=== PATIENT | male | born 1935 | race Caucasian/White ===

== ENCOUNTER 2019-09-16 16:36 | Inpatient (IN) | payer MEDICARE, OTHER, SELFPAY ==
[2019-09-06 09:44] VITALS: BP 157/67; PULSE 68; RESP 18; TEMP 36.9; O2SAT 100; BMI 23.8
[2019-09-16] VITALS (11 sets, daily range): BP systolic 117–158; BP diastolic 57–94; PULSE 65–90; RESP 10–19; TEMP 36.3–36.8; O2SAT 99–100; BMI 23.9; BMI 30.2
--- NOTE | ~2019-09-16 | XR_ITS ---
EXAMINATION: XR hip LT min 2V, XR surgery orthopedic DATE: 09/16/2019 15:58 (accession [id number]), 09/16/2019 15:38 (accession [id number]) INDICATION: Left total hip arthroplasty TECHNIQUE: 2 fluoroscopic intraoperative views of the left hip and 2 views left hip postoperatively. 15 seconds of fluoroscopy. FINDINGS: There is a left total hip arthroplasty in expected position. Subcutaneous gas with soft ti ssue swelling are consistent with recent surgery. IMPRESSION: 1. Recent left total hip arthroplasty. Reviewed, dictated and finalized at location A. R VEHICLE COMPLIANCE ANALYST IMPRESSION: 1. Recent left total hip arthroplasty.
--- NOTE | 2019-09-16 10:33 | WPDANESEPPF ---
Anes - Initial Pre Proc Eval Procedure: Operation Date: 09/16/19 12:00 Proposed Procedures p Left Total Hip Arthroplasty, Anterior Approach - Gallo Chu MD Date/Time: 09/16/19 10:33 Surgeon: Gallo Chu MD Pre Op Diagnosis: OA Left Hip Patient Data Age: 84 Gender: M Height: 1.66 m Weight: 66 kg Last Vital Signs Temp 36.9 C 09/06/19 09:44 Pulse 68 09/06/19 09:44 Resp 18 09/06/19 09:44 BP 157/67 H 09/06/19 09:44 Pulse Ox 100 09/06/19 09:44 Allergies Allergy/AdvReac Type Severity Reaction Status Date / Time SHELL FISH Allergy Severe Hives/THROAT Uncoded 09/06/19 09:07 SWELLING Home Medications Medication Instructions Recorded Confirmed Type buspirone 10 mg tablet 10 mg PO BID 08/29/19 09/06/19 History lansoprazole 30 mg capsule,delayed 30 mg PO DAILY 08/29/19 09/06/19 History release prednisolone acetate 0.12 % eye 1 drop LEFTEYE Q12H 08/29/19 09/06/19 History drops,suspension rosuvastatin 5 mg tablet 5 mg PO QMWF 08/29/19 09/06/19 History acetaminophen 500 mg PO PRN PRN 09/06/19 09/06/19 History coQ10 (ubiquinol) 100 mg PO DAILY 09/06/19 09/06/19 History cyanocobalamin (vitamin B-12) 1,000 mcg PO DAILY 09/06/19 09/06/19 History magnesium 400 mg PO DAILY 09/06/19 09/06/19 History naproxen sodium [Aleve] 220 mg PO PRN PRN 09/06/19 09/06/19 History sodium chloride [Yesica 128] 1 applic OPHTHALMIC (EYE) HS 09/06/19 09/06/19 History ECG: Date of Service: 09/06/19 Procedure(s): CA 12 lead EKG Accession Number(s): [id number] cc: ~ Measurements Intervals Taylor Rate: 70 P: 45 IL: 158 QRS: 43 QRSD: 86 T: 56 QT: 409 QTc: 444 Interpretive Statements SINUS RHYTHM ATRIAL PREMATURE COMPLEX EARLY PRECORDIAL R/S TRANSITION BASELINE ARTIFACT- I, II, III, AVR, AVL, AVF, V1-V6 BORDERLINE ECG Electronically Signed On 09-06-2019 10:58:29 CANDLE WRAPPING MACHINE OPERATOR by Abe Mendoza D.O. Dictated By: Abe Mendoza DO 09/06/19 1019 Patient hx anesthesia problems: none Family hx anesthesia problems: none PMFSH Past Medical History Medical History (Updated 09/16/19 @ 10:44 by Matthew Ojeda MD) Arthritis Cornea transplant recipient (~10/09/18) Gastroesophageal reflux disease Hypercholesterolemia Skin cancer Surgical History Surgical History History of eye surgery (~10/09/18) Social History Social History Smoking status: Former smoker Additional smoking assessment comments: Smoked for 30 years Alcohol intake: current Additional living arrangements comments: Gender identity (if verbalized by the patient): Male Anes - Eval Final PreProcedure Day of Procedure 09/16/19 10:33 Patient weight: normal Heart: regular rate and rhythm Lungs: clear to auscultation and normal air movement Airway: Mallampati scale class II Neurological: alert and oriented Last oral intake: >/= 8 hours ASA classification: II Emergent: no Anesthetic plan: proceed Anesthesia type and monitoring: general Informed Consent: The patient's anesthetic plan and its attendant risks and benefits were discussed with the patient/family/POA. Questions were solicited and answers provided to the satisfaction of the patient/family/POA.
[2019-09-16] MEDS: LACTATED RINGERS 1,000 ML 30 ML IV CONT ×2 (11:45→15:41)
--- NOTE | 2019-09-16 12:06 | WPDHPUPDATE1 ---
History and Physical Update Update Date/Time: 09/16/19 12:06 History and Physical has been reviewed, including an updated exam of the patient. There are NO changes in the patient's condition. Risks, benefits, and alternatives have been discussed and questions answered. Patient agrees to proceed with procedure.
[2019-09-16] MEDS: ceFAZolin 2 GM/D5W 50 ML 2 GM/50 ML BAG IVPB (12:34)
[2019-09-16] MEDS: TRANEXAMIC ACID 1,000 MG/10 ML AMPUL 1000 MG TOPICAL (12:52)
[2019-09-16] MEDS: ceFAZolin SODIUM 1 GM VIAL IV PUSH (15:08)
--- NOTE | 2019-09-16 15:56 | P.OP_ITS ---
Procedure Note - Detailed Date of procedure: 09/16/19 Pre-op diagnosis: OA Left Hip Post-op diagnosis: same Procedure performed: Left total hip replacement done through an anterior approach. Description of procedure: The patient was identified, proper side identified, and then taken to the operating room. After a spinal anesthetic was administered, he was then transferred over to the [place] table positioning supine in the usual manner for an anterior hip procedure. Positioning was assessed fluoroscopically after which the left hip and thigh was prepped and draped in the usual sterile fashion. 10 cc of the arthroplasty solution was injected into the subcutaneous tissue over the TFL muscle belly. Longitudinal incision was made over the muscle belly. Subcutaneous tissue was sharply dissected down to the TFL fascia which was incised in line with the fibers the TFL. The TFL was retracted laterally and the rectus femoris medially. The rectus fascia was divided. The branches of the anterior femoral circumflex artery were identified and cauterized allowing for access to the hip capsule. Pericapsular fatty tissue was removed. The capsule was divided in an inverted T-fashion. The neck cut was made one fingerbreadth above the level of the lesser trochanter. Head fragment was removed and the acetabulum cleared of debris. Acetabulum was sequentially reamed under fluoroscopic visualization up to 53 mm. A 54 mm G7 cup was inserted under fluoroscopic visualization in approximately 40? of abduction and 15? of anteversion following the patient's anatomy. It was further secured with a single screw and then the liner for the 36 head was placed. The femur was then delivered up into the wound with the appropriate releases. The proximal femur was prepared for the size 13 echo micro-plasty offset stem and a trial reduction was undertaken. Overall alignment was assessed fluoroscopically in the AP and lateral views noting it to be satisfactory. Trial components were removed. The wound was irrigated with pulsatile lavage. The real 13 high offset micro plasty stem was then seated. This construct with a minus three, 36 head gave excellent rastafarian of leg lengths and stability so the real 36, minus-three ceramic head was attached to the neck of the femoral component after it had been cleaned and dried. Hip was again reduced and stability assessed, and it was noted to be stable. After final lavage of the wound, the periarticular tissues were injected with an additional 50 cc of the arthroplasty solution. 1 g of tranexamic acid was left in the wound. The capsule was reapproximated with #2 Vicryl suture, the TFL fascia with 0 looped PDS suture, the subcu with two of strata fix in the deeper layers and two of strata fix subcuticular stitch. Tissue adhesive was used for the skin. Sterile dressing was applied. He tolerated the procedure well. He was transferred back to a bed and taken to recovery area in stable condition. There were no known intraoperative complications. Estimated blood loss was 200 cc. He received perioperative antibiotics. Anesthesia: spinal Surgeon: Gallo Chu MD Photography Spotter: Luis Felipe Gardiner Estimated blood loss (mL): 200 Drains: No Packing: No Pathology: none sent Complications: No immediate complications Condition: stable Disposition: PACU
[2019-09-16 17:09] LABS: Hematocrit 36.6 % (42.0-52.0)
[2019-09-16] MEDS: DOCUSATE SODIUM 100 MG CAPSULE PO (17:57)
[2019-09-16] MEDS: KETOROLAC 15 MG/ML VIAL (*BKC) IV PUSH (17:57)
--- NOTE | 2019-09-16 18:15 | ADMGEN ---
This patient, Malcolm Banegas, was admitted to 3 [facility] Surg Room 312-01 at 1640.Patient/family oriented to hospital policies and general routines including ID bracelet, bed and alarms, visiting hours, pain management, procedures, bathroom and other care routines, personal items, smoking policy, room service/diet, and visiting hours. Valuables list has been completed. Information on how to activate the Rapid Response Team has been discussed. Patient/Family are encouraged to report perceived risks to care and to ask questions if they do not understand what they are told or what they should do.
[2019-09-16] MEDS: busPIRone HCL 10 MG TABLET PO (19:02)
[2019-09-16] MEDS: ROSUVASTATIN 5 MG TABLET PO (19:03)
[2019-09-16] MEDS: FAMOTIDINE 20 MG TABLET PO (20:38)
[2019-09-17] MEDS: KETOROLAC 15 MG/ML VIAL (*BKC) IV PUSH ×2 (00:03→06:10)
[2019-09-17 02:00] VITALS: BP 128/56; PULSE 83; RESP 16; TEMP 36.8; O2SAT 99
[2019-09-17] MEDS: ONDANSETRON INJ 4 MG/2 ML VIAL IV PUSH ×2 (04:52→12:17)
[2019-09-17 06:00] VITALS: BP 142/67; PULSE 74; RESP 20; TEMP 36.6; O2SAT 100
[2019-09-17] MEDS: busPIRone HCL 10 MG TABLET PO (08:32)
[2019-09-17] MEDS: DOCUSATE SODIUM 100 MG CAPSULE PO (08:33)
[2019-09-17] MEDS: PANTOPRAZOLE 40 MG TABLET PO (08:34)
[2019-09-17] MEDS: FAMOTIDINE 20 MG TABLET PO (08:34)
--- NOTE | 2019-09-17 09:39 | WPDANESPN ---
Anes - Prog Note Post-Op Date/Time: 09/17/19 09:39 Cardiovascular status: normal Respiratory status: normal Airway patency: baseline Mental status: baseline Post-Op hydration status: normal Vital Signs: Last Vital Signs Temp 36.6 C 09/17/19 06:00 Pulse 74 09/17/19 06:00 Resp 20 09/17/19 06:00 BP 142/67 H 09/17/19 06:00 Pulse Ox 100 09/17/19 06:00 I/O: Intake & Output 09/16/19 09/17/19 09/17/19 23:59 07:59 15:59 Intake Total 720 250 650 Output Total 0 1400 Balance 720 -1150 650 Laboratory Tests 09/16/19 16:55 09/16/19 09/16/19 16:55 16:55 Hgb 12.0 L Hct 36.6 L Blood Type O Positive Antibody Screen Negative Post-procedural complaints: none Patient Feedback: Patient satisfied with anesthetic care.
[2019-09-17 10:00] VITALS: BP 138/65; PULSE 88; RESP 19; TEMP 36.7; O2SAT 100
[2019-09-17] MEDS: MAG HYDROX/AL HYDROX/SIMETH 30 ML UDC PO (12:17)
[2019-09-17] MEDS: RIVAROXABAN 10 MG TABLET PO (12:18)
--- NOTE | 2019-09-17 12:25 | PM.PNORT ---
Progress Note: A&P Assessment and Plan (1) Osteoarthritis of left hip: Qualifiers: Osteoarthritis type: primary Qualified Code(s): M16.12 - Unilateral primary osteoarthritis, left hip Code(s): M16.12 - Unilateral primary osteoarthritis, left hip Status: Acute Assessment and Plan: Discharge home today. Instructions were reviewed. He is to follow up with me in two weeks. Time Spent With Patient Time with patient: 15 - 25 minutes Subjective Subjective Date/Time Seen: 09/17/19 12:25 Post Op day: 1 (Status post left total hip replacement) Review of Systems Constitutional: Constitutional: Denies chills and Denies fever(s) Eyes: Eyes: Reports no additional eye complaints ENT: Reports system reviewed and no additional complaints, except as documented Cardiovascular: Cardiovascular: Denies chest pain and Denies dyspnea on exertion Respiratory: Respiratory: Reports no additional respiratory complaints and Denies dyspnea on exertion Gastrointestinal: Gastrointestinal: Denies abdominal pain, Denies bloating and Reports nausea (With the pain medicine) Exam Const: General: cooperative, no acute distress and alert Nutritional Appearance: other Orientation/consciousness: patient oriented x3 Limitations: no limitations HENMT: Head: normal to inspection Ears: hearing grossly normal bilaterally Face and sinus: face symmetric Mouth: Yes moist mucous membranes Teeth and gingiva: fair dentition Eyes: Alignment and Position: alignment normal and position normal Sclera: sclerae normal Neck: Neck: normal visual inspection and nontender Chest: Chest palpation & inspection: normal inspection of the chest Resp: Effort & Inspection: normal respiratory effort and able to speak in complete sentences GI: Inspection: other Skin: General skin exam: normal color Rashes: no rashes Neuro: General: patient oriented x3 Cognition (Neuro): normal cognition Speech: normal speech Gait exam (Neuro): Other gait observations present Motor exam (neuro): 5/5 motor strength present throughout Sensory Exam: normal sensation Extrem: General: normal to inspection and other Other: Exam of the left hip shows a nicely opposed wound. No erythema only minimal swelling. No Drainage. Neurovascular status to the left lower extremity intact. Calves negative. Psych: Appearance: grossly normal Mental Status: mental status grossly normal Objective Data Vital Signs Vital Signs: Vital Signs - 24 hr 09/16/19 15:41 09/16/19 15:45 09/16/19 16:00 Temperature 97.5 F L Pulse Rate 75 65 68 Respiratory Rate 10 L 11 L 13 Blood Pressure 117/57 L 124/66 124/66 Pulse Oximetry 100 100 100 09/16/19 16:15 09/16/19 16:30 09/16/19 16:40 Temperature Pulse Rate 66 71 76 Respiratory Rate 10 L 12 18 Blood Pressure 124/67 125/63 131/94 H Pulse Oximetry 100 100 99 09/16/19 16:55 09/16/19 17:25 09/16/19 18:25 Temperature 98.3 F Pulse Rate 74 72 90 Respiratory Rate 16 18 19 Blood Pressure 136/67 144/64 H 152/63 H Pulse Oximetry 100 100 100 09/16/19 22:45 09/17/19 02:00 09/17/19 06:00 Temperature 97.7 F 98.2 F 98 F Pulse Rate 75 83 74 Respiratory Rate 16 16 20 Blood Pressure 158/68 H 128/56 L 142/67 H Pulse Oximetry 100 99 100 09/17/19 10:00 Temperature 98.1 F Pulse Rate 88 Respiratory Rate 19 Blood Pressure 138/65 Pulse Oximetry 100 Intake/Output Intake/Output: Intake & Output 09/14/19 09/15/19 09/16/19 09/17/19 23:59 23:59 23:59 23:59 Intake Total 870 / 870 900 / 900 Output Total 0 / -250.0 1400 / 1400 Balance 870 / 1120.0 -500 / -500 Meds/Results Medications: Active Medications Generic Name Dose Route Start Last Admin Trade Name Freq PRN Reason Stop Dose Admin Al Hydrox/Mg Hydrox/Simethicone 30 ml 09/16/19 16:36 09/17/19 12:17 Mylanta PO 30 ml Q6H PRN Administration Indigestion Buspirone HCl 10 mg 09/16/19 17:00 09/17/19 08:32 Buspar PO 10 mg B
--- NOTE | 2019-09-17 12:36 | PM.DS ---
DS: Diagnosis Admitting Diagnosis Admitting Diagnosis: Unilateral primary osteoarthritis, left hip DS: Summary Time Spent with Patient Time attestation: Total time spent providing and/or coordinating discharge services: DS: Data Data Completed and Pending Labs on day of discharge: Labs from last 24 hours 09/16/19 09/16/19 16:55 16:55 Hgb 12.0 L Hct 36.6 L Blood Type O Positive Antibody Screen Negative Discharge Plan Discharge Attending physician on discharge: Gallo Chu Discharging Clinician: Gallo Chu Patient Disposition: Home, Self-Care Activity: may shower Diet: regular Wound Care Instructions: incision open to air Discharge Instructions: Call [phone] and ask for [place] with any questions prior to follow-up. Please replace the dressing on 09/13/2019 with the one provided by the hospital. Okay to shower. 3 times daily for 20 minutes apiece, lay in bed with pillow underneath the left calf and ice bags on the hip. Be careful not to freeze the skin. For the 1st 2-3 days after your surgery, take the prescribed pain medication on a schedule. After switching to the scheduled arthritis formula Tylenol, you may take up to four of the pain pills per day in addition to the scheduled Tylenol. Can switched to the scheduled Tylenol in three or four days, rather than five. Do your physical therapy exercises once or twice daily for the 1st week. Your formal therapy begins in one week. The day after the Xarelto is completed, begin taking enteric coated aspirin 81 mg daily and do this for a total of 28 more days. Patient Instructions: Antibiotic Form Stand Alone Forms: General Discharge Information Follow-up/Referrals: Gallo Chu MD [Physician] - Discharge Medications: New hydrocodone-acetaminophen 7.5-325 mg tablet 1 tablet PO Q4H PRN (Reason: pain) Qty: 40 RF: 0 Xarelto 10 mg Tablet 10 mg PO DAILY@1700 Qty: 13 RF: 0 ondansetron HCl [Zofran] 4 mg tablet 4 mg PO Q8H PRN (Reason: nausea and vomiting) Qty: 15 RF: 1 Continued buspirone 10 mg tablet 10 mg PO BID RF: 0 rosuvastatin 5 mg tablet 5 mg PO QMWF RF: 0 lansoprazole 30 mg capsule,delayed release(DR/EC) 30 mg PO DAILY RF: 0 prednisolone acetate 0.12 % drops,suspension 1 drop LEFTEYE Q12H RF: 0 sodium chloride [Yesica 128] 5 % Ointment 1 applic ophthalmic (eye) HS RF: 0 cyanocobalamin (vitamin B-12) 1,000 mcg Tablet 1,000 mcg PO DAILY RF: 0 magnesium 200 mg Tablet 400 mg PO DAILY RF: 0 coQ10 (ubiquinol) 100 mg Capsule 100 mg PO DAILY RF: 0 Discontinued acetaminophen 500 mg Tablet 500 mg PO PRN PRN (Reason: Pain) RF: 0 Date of admission: 09/16/19 16:36 Primary Care Provider: ErnestoAlex Admitting Provider: Gallo Chu Attending physician on admission: Gallo Chu Quality VTE Prophylaxis VTE prophylaxis: mechanical ordered and pharmacologic ordered
== END 2019-09-17 14:15 | disposition home or self-care (01) | DRG 470 ==
LOC: ANH3MEDSUR 16:41
PROVIDERS: Admitting Provider Orthopaedic Surgery; PCP Internal Medicine; Visit Provider Orthopaedic Surgery
PROC: 0SRB01A Replacement of Left Hip Joint with Metal Synthetic Substitute, Uncemented, Open Approach (ICD-10-PCS; CPT 27130; principal; 2019-09-16 12:00)
DX: M16.12 Unilateral primary osteoarthritis, left hip (principal); M19.90 Unspecified osteoarthritis, unspecified site; K21.9 Gastro-esophageal reflux disease without esophagitis; E78.00 Pure hypercholesterolemia, unspecified; Z85.828 Personal history of other malignant neoplasm of skin; Z87.891 Personal history of nicotine dependence
CPT/HCPCS: 36415; 73502; 76000; 85014; 85018; 86850; 86900; 86901; 97116; 97161; 97165; 97530; 97535; A9270; C1776; J0131; J0171; J0690; J1170; J1885; J2250; J2270; J2405; J2704; J2795; J3010; J7120

== ENCOUNTER → 2022-02-24 07:39 | Outpatient (CLI) | payer MEDICARE, OTHER, SELFPAY ==
--- NOTE | ~2022-02-24 | MR_ITS ---
EXAMINATION: MR lumbar spine wo con DATE: 02/24/2022 08:16 INDICATION: Lumbago and left-sided sciatica TECHNIQUE: Magnetic resonance imaging (MRI) of the lumbar spine was performed without intravenous con trast. Sequences included sagittal T2-weighted FSE, sagittal T2-weighted FS FSE, sagittal T1-weighted FSE, and axial T2-weighted FSE. COMPARISON: None FINDINGS: 30 degree lumbar levoscoliosis and 20 degrees lower thoracic dextroscoliosis. 2 mm retrolisthesis T11 and T12, 3 mm retrolisthesis T12 on L1, 4 mm anterolisthesis L4 on L5. Severe right-sided predominan t disc height loss at L4 and L4-L5, severe left-sided predominant disc height loss at T12-L1, L1-L2 a nd L5-S1 and moderate disc height loss at T10-T11, T11-T12 and with right-sided predominance at L2-L3 . Prominent fibrovascular degenerative endplate changes associated with the regions of severe disc he ight loss. Annular fissures at T11-T12 through L5-S1. Oral signal is otherwise normal. The conus medu llaris terminates at L1-L2. There is normal signal in the caudal spinal cord. 2.2 cm T2 hyperintense right renal cyst. Paravertebral soft tissues are unremarkable. The following disc levels are specific ally discussed: T10-T11: Disc is bulging. There is mild right and severe left facet joint osteoarthritis. There is mo derate left and moderate to severe right neural foraminal stenosis. There is mild central canal steno sis. T11-T12: Disc is bulging. There is moderate left and mild right facet joint osteoarthritis. There is moderate right and severe left neural foraminal stenosis. There is mild central canal stenosis. T12-L1: Disc is bulging. There is moderate right and moderate to severe left facet joint osteoarthrit is. There is mild to moderate right and severe left neural foraminal stenosis. There is mild central canal stenosis. L1-L2: Disc is bulging. There is hypertrophy of the ligamentum flavum. There is severe bilateral fac et joint osteoarthritis. There is moderate right and moderate to severe left neural foraminal stenosi s. There is moderate to severe central canal stenosis with narrowing of the lateral recesses, right g reater than left. L2-L3: Disc is bulging. There is hypertrophy of the ligamentum flavum. There is left and moderate to severe right facet joint osteoarthritis. There is moderate left and moderate to severe right neural foraminal stenosis. There is mild central canal stenosis with narrowing of the lateral recesses. L3-L4: Disc is bulging. There is hypertrophy of the ligamentum flavum. There is moderate left and s evere right facet joint osteoarthritis. There is moderate left and moderate to severe right neural fo raminal stenosis. There is mild central canal stenosis with narrowing of the left and right lateral r ecesses, right greater than left. L4-L5: Disc is bulging. There is hypertrophy of the ligamentum flavum. There is severe bilateral face t joint osteoarthritis. There is moderate left and moderate to severe right neural foraminal stenosis . There is mild to moderate central canal stenosis with narrowing of the lateral recesses, right grea ter than left. L5-S1: Disc is bulging. There is moderate to severe right and severe left facet joint osteoarthritis. There is moderate bilateral, left greater than right neural foraminal stenosis. There is mild centra l canal stenosis. IMPRESSION: 1. 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 Reviewed, dictated and finalized at location A. IMPRESSION: 1. 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
== END ==
PROVIDERS: PCP Internal Medicine; Visit Provider Nurse Practitioner
DX: M54.42 Lumbago with sciatica, left side (principal); M47.895 Other spondylosis, thoracolumbar region; M47.894 Other spondylosis, thoracic region
CPT/HCPCS: 72148

== ENCOUNTER 2022-04-27 07:07 | Day surgery (SDC) | payer MEDICARE, OTHER, SELFPAY ==
[2022-04-12 09:31] VITALS: BMI 24.5
[2022-04-27] MEDS: TETRACAINE HCL 0.5% OPHTH SOLN 4 ML BTL 1 DROP AFFCTD EYE ×3 (08:12→08:22)
[2022-04-27] MEDS: OFLOXACIN 0.3% OPHTH SOLN 5 ML BTL 1 DROP AFFCTD EYE (08:12)
[2022-04-27] MEDS: PILOCARPINE HCL 2% OP SOLN 15 ML BTL 1 DROP AFFCTD EYE ×3 (08:12→08:22)
[2022-04-27 08:16] VITALS: BP 159/77; PULSE 76; RESP 18; TEMP 37.1; O2SAT 100
--- NOTE | 2022-04-27 08:30 | WPDANESEPPF ---
Anes - Initial Pre Proc Eval Procedure: Operation Date: 04/27/22 09:00 Proposed Procedures p Descemet Membrane Endothelial Keratoplasy-Right Eye - Elian Garibay MD Date/Time: 04/27/22 08:30 Surgeon: Elian Garibay MD Pre Op Diagnosis: Mechanical Complication of Tissue Graft Right Eye Patient Data Age: 87 Gender: M Height: 1.68 m Weight: 68.5 kg Last Vital Signs Temp 37.1 C 04/27/22 08:16 Pulse 76 04/27/22 08:16 Resp 18 04/27/22 08:16 BP 159/77 H 04/27/22 08:16 Pulse Ox 100 04/27/22 08:16 O2 Del Method Room Air 04/27/22 08:16 Allergies Allergy/AdvReac Type Severity Reaction Status Date / Time SHELL FISH Allergy Severe Hives/THROAT Uncoded 04/27/22 08:10 SWELLING Home Medications Medication Instructions Recorded Confirmed Type buspirone 10 mg tablet 10 mg PO BID 08/29/19 04/27/22 History lansoprazole 30 mg capsule,delayed 30 mg PO DAILY 08/29/19 04/27/22 History release prednisolone acetate 0.12 % eye 1 drop EACH EYE Q12H 08/29/19 04/27/22 History drops,suspension rosuvastatin 5 mg tablet 5 mg PO QMWF 08/29/19 04/27/22 History coQ10 (ubiquinol) 100 mg capsule 100 mg PO DAILY 09/06/19 04/27/22 History magnesium 200 mg tablet 400 mg PO DAILY 09/06/19 04/27/22 History sodium chloride 5 % eye ointment 1 applic EACH EYE HS 09/06/19 04/27/22 History (Yesica 128) Patient hx anesthesia problems: none Family hx anesthesia problems: none Results Review: All pre-operative results and documents have been reviewed as part of the pre-operative evaluation. [facility] Past Medical History Medical History Arthritis Cornea transplant recipient (~10/09/18) Gastroesophageal reflux disease Hypercholesterolemia Skin cancer Surgical History Surgical History History of eye surgery (~10/09/18) Status post total replacement of left hip August 2019 Family History Family History Mother Cancer Social History Social History Smoking packs per day: 1 Smoking cigarettes per day: 20.0 Years smoked: 30 Smoking pack-years: 30.00 Smoking status: Former smoker Tobacco type: cigarettes Second hand tobacco smoke exposure: No Smoking end date: 08/21/81 Additional smoking assessment comments: quit smoking 40 years ago Alcohol intake: current Drinks per week: 7 Alcohol use details: 1 glass of wine every evening Substance use: never Living arrangements: with family Additional living arrangements comments: Gender identity (if verbalized by the patient): Male Spiritual care concerns: No Anes - Eval Final PreProcedure Day of Procedure 04/27/22 08:30 Patient weight: normal Heart: regular rate and rhythm Lungs: decreased breath sounds Airway: Mallampati scale class II Neurological: alert and oriented Last oral intake: >/= 8 hours ASA classification: III Emergent: no Anesthetic plan: proceed Anesthesia type and monitoring: general GIVS and standard monitoring Results Review: All pre-operative results and documents have been reviewed as part of the pre-operative evaluation. Informed Consent: The patient's anesthetic plan and its attendant risks and benefits were discussed with the patient/family/POA. Questions were solicited and answers provided to the satisfaction of the patient/family/POA.
--- NOTE | 2022-04-27 08:47 | PM.HPGS ---
History of Present Illness History of Present Illness Consent: Risks, benefits, and alternatives have been discussed and questions answered. Patient agrees to proceed with procedure. 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 Family History Family History Mother Cancer Social History Social History Smoking packs per day: 1 Smoking cigarettes per day: 20.0 Years smoked: 30 Smoking pack-years: 30.00 Smoking status: Former smoker Tobacco type: cigarettes Second hand tobacco smoke exposure: No Smoking end date: 08/21/81 Additional smoking assessment comments: quit smoking 40 years ago Alcohol intake: current Drinks per week: 7 Alcohol use details: 1 glass of wine every evening Substance use: never Living arrangements: with family Additional living arrangements comments: Gender identity (if verbalized by the patient): Male Spiritual care concerns: No Meds Home Medications and Allergies Home Medications Medication Instructions Recorded Confirmed Type buspirone 10 mg tablet 10 mg PO BID 08/29/19 04/27/22 History lansoprazole 30 mg capsule,delayed 30 mg PO DAILY 08/29/19 04/27/22 History release prednisolone acetate 0.12 % eye 1 drop EACH EYE Q12H 08/29/19 04/27/22 History drops,suspension rosuvastatin 5 mg tablet 5 mg PO QMWF 08/29/19 04/27/22 History coQ10 (ubiquinol) 100 mg capsule 100 mg PO DAILY 09/06/19 04/27/22 History magnesium 200 mg tablet 400 mg PO DAILY 09/06/19 04/27/22 History sodium chloride 5 % eye ointment 1 applic EACH EYE HS 09/06/19 04/27/22 History (Yesica 128) Allergies Allergy/AdvReac Type Severity Reaction Status Date / Time SHELL FISH Allergy Severe Hives/THROAT Uncoded 04/27/22 08:10 SWELLING Vital Signs Vital Signs - 24 hr 04/27/22 08:16 Temperature 37.1 C Pulse Rate 76 Respiratory Rate 18 Blood Pressure 159/77 H Pulse Oximetry 100 Oxygen Delivery Room Air Exam Narrative: REVIEWED HISTORY, PATIENT IS READY FOR EYE SURGERY Assessment and Plan Assessment and plan (1) 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
--- NOTE | 2022-04-27 08:53 | SUR.OPER ---
SF6 GAS INJECTED BY DR LINDO TO RT EYE
[2022-04-27] MEDS: LIDOCAINE HCL 2% JELLY 5 ML TUBE 1 APPLIC AFFCTD EYE (08:54)
--- NOTE | 2022-04-27 09:11 | SUR.OPER ---
[facility] [place] SN#[id number] [facility] SN#[id number]
[2022-04-27] MEDS: LIDOCAINE HCL 1% PF INJ 5 ML VIAL 1 ML INTRAOCULA (09:15)
[2022-04-27] MEDS: NEOMYCIN/POLYMYXIN/DEXAMETH OP OINT 3.5 GM TUBE 1 APPLIC AFFCTD EYE (10:00)
[2022-04-27] MEDS: HOME MEDICATION 1 EACH AFFCTD EYE (10:00)
[2022-04-27 10:03] VITALS: BP 145/61; PULSE 63; RESP 14; O2SAT 100
[2022-04-27 10:18] VITALS: BP 139/64; PULSE 67; RESP 16; O2SAT 100
[2022-04-27 10:33] VITALS: BP 128/62; PULSE 64; RESP 16; O2SAT 100
[2022-04-27 10:48] VITALS: BP 139/64; PULSE 73; RESP 20; O2SAT 100
[2022-04-27] MEDS: LACTATED RINGERS 1,000 ML 30 ML IV CONT (10:56)
[2022-04-27] MEDS: acetaZOLAMIDE TAB 250 MG TABLET PO (11:05)
--- NOTE | 2022-04-27 11:07 | WPDANESPN ---
Anes - Prog Note Post-Op Date/Time: 04/27/22 11:07 Cardiovascular status: normal Respiratory status: normal Airway patency: baseline Mental status: baseline Post-Op hydration status: normal Vital Signs: Last Vital Signs Temp 37.1 C 04/27/22 08:16 Pulse 73 04/27/22 10:48 Resp 20 04/27/22 10:48 BP 139/64 04/27/22 10:48 Pulse Ox 100 04/27/22 10:48 O2 Del Method Room Air 04/27/22 10:33 Pain Score (VAS): 0 Patient Feedback: Patient satisfied with anesthetic care.
--- NOTE | 2022-04-27 11:14 | SUR.PHASEII ---
1003 pt to Phase II flat on back on stretcher. Pt to remain flat for 1 hour.
--- NOTE | 2022-04-27 11:15 | SUR.PHASEII ---
1104 pt assisted to sitting position on stretcher after remaining flat for an hour. Pt tolerated well.
--- NOTE | 2022-04-27 11:25 | WPDHPUPDATE1 ---
History and Physical Update Update Date/Time: 04/27/22 11:25 History and Physical has been reviewed, including an updated exam of the patient. There are NO changes in the patient's condition. Risks, benefits, and alternatives have been discussed and questions answered. Patient agrees to proceed with procedure.
--- NOTE | 2022-04-27 12:22 | P.OP_ITS ---
Procedure Note - Detailed Date of Procedure 04/27/22 Pre-op Diagnosis Corenal Tissue Graft Failure Right Eye Post-op Diagnosis Same Procedure Performed DMEK [OD eye Surgeon Elian Garibay MD Anesthesia Other (Monitored anesthesia care and local retrobulbar block) Description of Procedure Following discussion of the risks, benefits, and alternatives, informed consent was obtained and the surgical permission form was signed and witnessed. The operative site was marked in the holding area after consulting the patient's office chart. Monitoring devices were placed on the patient and the patient was positioned in the supine position. After an appropriate intravenous sedation, a peribulbar block was given to the operative eye using a 25 gauge 5/8 inch needle. A total of 4 cc of a mixture of 0.75% Marcaine and 2% lidocaine was given. The patient was then prepped and draped in the normal sterile ophthalmic fashion. A Cindy eyelid speculum was inserted into the operative eye. A 15-degree blade was used to make two paracenteses sites. The 8 mm optical zone marker was used to kim the surface of the cornea. Provisc was injected into the anterior chamber to deepen and firm it. A 2.4 mm keratome was used to create a triplanar clear cornea incision temporally. The previously made inferior peripheral iridotomy was examined and noted to be patent. A reverse Sinskey hook was used to score Descemet's membrane just outside the 8 mm optical zone kim. A Max's Descemet's stripper was used to remove the host Descemet's membrane. The irrigation and aspiration was used to remove any residual viscoelastic from the anterior chamber. Attention was then directed to the donor corneal button which was lightly punched endothelial side up using a 7.75mm punch. The Descemet's membrane was tripped carefully and the scroll stained with trypan blue stain. The donor Descemet's scroll was loaded into the DoubleVerify-LoiLo tube injector and slowly injected into the anterior chamber with care so as to keep the chamber shallow. A single 10-0 nylon suture was used to close the corneal wound. BSS was injected into the anterior chamber to unfold the tissue. Care was taken to ensure correct orientation with endothelium on outside of DM curl. The graft was unfolded using tapping motions and then centered using golf swing motions on the cornea. A full anterior chamber fill with 20% SF6 gas/80% filtered air was then given to float the donor lenticule. All knots were cut short and buried. At the end of the case, the gas bubble was reduced to expose the inferior angle with the patient in an upright position,. The eyelid speculum was removed and the patient's face and eye were cleaned with wet and dry gauze. Antibiotic, steroid and ointment were applied to the operative eye. The eye was patched with an eye pad and a mitchell shield. The patient was taken to the re covery room in a stable condition. The patient was left lying in supine position with nose up towards the ceiling positioning for a further 2 hours in the holding area. Sponges, needle and instrument counts: all correct at conclusion of the case. Complications None Condition Stable Disposition Same day
== END 2022-04-27 11:10 | disposition home or self-care (01) ==
PROVIDERS: PCP Internal Medicine; Visit Provider Student in an Organized Health Care Education/Training Program
PROC: (CPT 65756; principal; 2022-04-27 09:00)
DX: T86.8411 Corneal transplant failure, right eye (principal)
CPT/HCPCS: 65756; V2785

== ENCOUNTER 2022-06-22 07:17 | Day surgery (SDC) | payer MEDICARE, OTHER, SELFPAY ==
[2022-06-14 12:04] VITALS: BMI 23.4
[2022-06-22 08:00] VITALS: BP 167/86; PULSE 79; RESP 16; TEMP 36.5; O2SAT 100
--- NOTE | 2022-06-22 08:08 | WPDANESEPPF ---
Anes - Initial Pre Proc Eval Procedure: Operation Date: 06/22/22 09:00 Proposed Procedures p Descemet Membrane Endothelial Keratoplasty-Left Eye - Elian Garibay MD Date/Time: 06/22/22 08:08 Surgeon: Elian Garibay MD Pre Op Diagnosis: Corneal Transplant Failure Left Eye Patient Data Age: 87 Gender: M Height: 1.7 m Weight: 68 kg Allergies Allergy/AdvReac Type Severity Reaction Status Date / Time SHELL FISH Allergy Severe Hives/THROAT Uncoded 04/27/22 08:10 SWELLING Home Medications Medication Instructions Recorded Confirmed Type buspirone 10 mg tablet 10 mg PO BID 08/29/19 06/14/22 History lansoprazole 30 mg capsule,delayed 30 mg PO DAILY 08/29/19 06/14/22 History release prednisolone acetate 0.12 % eye 1 drop EACH EYE Q12H 08/29/19 06/14/22 History drops,suspension rosuvastatin 5 mg tablet 5 mg PO QMWF 08/29/19 06/14/22 History coQ10 (ubiquinol) 100 mg capsule 100 mg PO DAILY 09/06/19 06/14/22 History magnesium 200 mg tablet 400 mg PO DAILY 09/06/19 06/14/22 History sodium chloride 5 % eye ointment 1 applic EACH EYE HS 09/06/19 06/14/22 History (Yesica 128) Patient hx anesthesia problems: none Family hx anesthesia problems: none Results Review: All pre-operative results and documents have been reviewed as part of the pre-operative evaluation. 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 Family History Family History Mother Cancer Social History Social History Smoking packs per day: 1 Smoking cigarettes per day: 20.0 Years smoked: 30 Smoking pack-years: 30.00 Smoking status: Former smoker Tobacco type: cigarettes Second hand tobacco smoke exposure: No Smoking end date: 08/21/81 Additional smoking assessment comments: quit smoking 40 years ago Alcohol intake: current Drinks per week: 7 Alcohol use details: 1 glass of wine every evening Substance use: never Substance use type: does not use Living arrangements: with family Additional living arrangements comments: Gender identity (if verbalized by the patient): Male Spiritual care concerns: No Anes - Eval Final PreProcedure Day of Procedure 06/22/22 08:08 Patient weight: normal Heart: regular rate and rhythm Lungs: decreased breath sounds Airway: Mallampati scale class II Neurological: alert and oriented Last oral intake: >/= 8 hours ASA classification: III Emergent: no Anesthetic plan: proceed Anesthesia type and monitoring: general GIVS and standard monitoring Results Review: All pre-operative results and documents have been reviewed as part of the pre-operative evaluation. Informed Consent: The patient's anesthetic plan and its attendant risks and benefits were discussed with the patient/family/POA. Questions were solicited and answers provided to the satisfaction of the patient/family/POA.
[2022-06-22] MEDS: PILOCARPINE HCL 2% OP SOLN 15 ML BTL 1 DROP AFFCTD EYE ×3 (08:20→08:30)
[2022-06-22] MEDS: OFLOXACIN 0.3% OPHTH SOLN 5 ML BTL 1 DROP AFFCTD EYE (08:20)
[2022-06-22] MEDS: TETRACAINE HCL 0.5% OPHTH SOLN 4 ML BTL 1 DROP AFFCTD EYE ×3 (08:20→08:30)
[2022-06-22] MEDS: LACTATED RINGERS 1,000 ML 30 ML IV CONT ×2 (08:25→10:08)
--- NOTE | 2022-06-22 08:56 | WPDHPUPDATE1 ---
History and Physical Update Update Date/Time: 06/22/22 08:56 History and Physical has been reviewed, including an updated exam of the patient. There are NO changes in the patient's condition. Risks, benefits, and alternatives have been discussed and questions answered. Patient agrees to proceed with procedure.
[2022-06-22] MEDS: LIDOCAINE HCL 2% JELLY 5 ML TUBE 1 APPLIC AFFCTD EYE (09:13)
[2022-06-22] MEDS: LIDOCAINE HCL 1% PF INJ 5 ML VIAL 2 ML AFFCTD EYE (09:18)
[2022-06-22] MEDS: LIDOCAINE HCL 1% LOCAL INJ 2 ML AMPUL 1 ML INFILTRATE (09:25)
--- NOTE | 2022-06-22 09:50 | SUR.OPER ---
sf6 gas used during procedure
[2022-06-22] MEDS: NEOMYCIN/POLYMYXIN/DEXAMETH OP OINT 3.5 GM TUBE 1 APPLIC AFFCTD EYE (10:04)
[2022-06-22] MEDS: HOME MEDICATION 1 EACH AFFCTD EYE (10:04)
[2022-06-22 10:08] VITALS: BP 130/70; PULSE 66; RESP 16; O2SAT 100
--- NOTE | 2022-06-22 10:09 | SUR.OPER ---
[id number]
--- NOTE | 2022-06-22 10:25 | SUR.PHASEII ---
1008 Pt lying flat on back on stretcher. Pt to remain flat for one hour post-op
[2022-06-22 10:38] VITALS: BP 132/66; PULSE 64; RESP 20; O2SAT 100
--- NOTE | 2022-06-22 11:04 | WPDANESPN ---
Anes - Prog Note Post-Op Date/Time: 06/22/22 11:04 Cardiovascular status: normal Respiratory status: normal Airway patency: baseline Mental status: baseline Post-Op hydration status: normal Vital Signs: Last Vital Signs Temp 36.5 C 06/22/22 08:00 Pulse 64 06/22/22 10:38 Resp 20 06/22/22 10:38 BP 132/66 06/22/22 10:38 Pulse Ox 100 06/22/22 10:38 O2 Del Method Room Air 06/22/22 10:38 Pain Score (VAS): 0 Patient Feedback: Patient satisfied with anesthetic care.
[2022-06-22 11:08] VITALS: BP 126/66; PULSE 66; RESP 20; O2SAT 99
[2022-06-22] MEDS: acetaZOLAMIDE TAB 250 MG TABLET PO (11:12)
--- NOTE | 2022-06-22 11:51 | SUR.PHASEII ---
1111 Pt sat up in stretcher pt tolerated well
--- NOTE | 2022-06-22 12:22 | P.OP_ITS ---
Procedure Note - Detailed Date of Procedure 06/22/22 Pre-op Diagnosis Corneal Transplant Failure Left Eye Post-op Diagnosis Same Procedure Performed DMEK [OS] eye Surgeon Elian Garibay MD Anesthesia Other (Monitored anesthesia care and local retrobulbar block) Description of Procedure Following discussion of the risks, benefits, and alternatives, informed consent was obtained and the surgical permission form was signed and witnessed. The operative site was marked in the holding area after consulting the patient's office chart. Monitoring devices were placed on the patient and the patient was positioned in the supine position. After an appropriate intravenous sedation, a peribulbar block was given to the operative eye using a 25 gauge 5/8 inch needle. A total of 4 cc of a mixture of 0.75% Marcaine and 2% lidocaine was given. The patient was then prepped and draped in the normal sterile ophthalmic fashion. A Cindy eyelid speculum was inserted into the operative eye. A 15-degree blade was used to make two paracenteses sites. The 8 mm optical zone marker was used to kim the surface of the cornea. Provisc was injected into the anterior chamber to deepen and firm it. A 2.4 mm keratome was used to create a triplanar clear cornea incision temporally. The previously made in ferior peripheral iridotomy was examined and noted to be patent. A reverse Sinskey hook was used to score Descemet's membrane just outside the 8 mm optical zone kim. A Amx's Descemet's stripper was used to remove the host Descemet's membrane. The irrigation and aspiration was used to remove any residual viscoelastic from the anterior chamber. Attention was then directed to the donor corneal button which was lightly punched endothelial side up using a 7.75mm punch. The Descemet's membrane was tripped carefully and the scroll stained with trypan blue stain. The donor Descemet's scroll was loaded into the LaFourchette-O2 [place] tube injector and slowly injected into the anterior chamber with care so as to keep the chamber shallow. A single 10-0 nylon suture was used to close the corneal wound. BSS was injected into the anterior chamber to unfold the tissue. Care was taken to ensure correct orientation with endothelium on outside of DM curl. The graft was unfolded using tapping motions and then centered using golf swing motions on the cornea. A full anterior chamber fill with 20% SF6 gas/80% filtered air was then given to float the donor lenticule. All knots were cut short and buried. At the end of the case, the gas bubble was reduced to expose the inferior angle with the patient in an upright position,. The eyelid speculum was removed and the patient's face and eye were cleaned with wet and dry gauze. Antibiotic, steroid and ointment were applied to the operative eye. The eye was patched with an eye pad and a mitchell shield. The patient was taken to the recovery room in a stable condition. The patient was left lying in supine position with nose up towards the ceiling positioning for a further 2 hours in the holding area. Sponges, needle and instrument counts: all correct at conclusion of the case. Complications None Condition Stable Disposition Same day
== END 2022-06-22 11:27 | disposition home or self-care (01) ==
PROVIDERS: PCP Internal Medicine; Visit Provider Student in an Organized Health Care Education/Training Program
PROC: (CPT 65756; principal; 2022-06-22 09:00)
DX: T86.8412 Corneal transplant failure, left eye (principal)
CPT/HCPCS: 65756; V2785